=== PATIENT | male | born 1995 | race African-American/Black ===

== ENCOUNTER → 2022-10-31 09:45 | Outpatient (BNVA) | payer OTHER, SELFPAY | PROVIDERS: Visit Provider Physician Assistant | DX: M67.431 Ganglion, right wrist (principal) | CPT/HCPCS: 73110; 99203 ==

== ENCOUNTER → 2022-11-14 10:27 | Outpatient (BNVA) | payer OTHER, SELFPAY | PROVIDERS: Visit Provider Physician Assistant Medical | DX: M67.431 Ganglion, right wrist (principal) | CPT/HCPCS: 99213 ==